=== PATIENT | male | born 1995 | race Caucasian/White ===

== ENCOUNTER 2017-04-30 14:04 | Observation (INO) | payer SELFPAY ==
[2017-04-30 14:53] LABS: #Eosinphils 0.1 thou/uL (0.0-0.7); #Lymphocytes 1.5 thou/uL (1.20-3.40); #Monocytes 0.3 thou/uL (0.11-0.59); #Neutrophils 2.6 thou/uL (1.40-6.50); %Lymphocytes 33.2 % (28.0-48.0); %Monocytes 5.8 % (0.0-4.0); Hematocrit 41.3 % (42.0-52.0); Mean Platelet Volume 8.6 fL (7.4-10.4); Red Blood Cell (RBC) Count 4.43 mill/uL (4.00-5.20); White Blood Cell (WBC) Count 4.6 thou/uL (4.8-10.8)
--- NOTE | 2017-04-30 15:09 | RAD ---
PORTABLE CHEST 1 VIEW: Date: 04/30/17 Time: 1436 hours HISTORY: Syncope, abnormal EKG. FINDINGS: The heart size is normal. The lungs are well expanded without focal areas of consolidation, pneumoth orax, or pleural effusions. IMPRESSION: No acute process. POS: [facility]
--- NOTE | 2017-04-30 15:09 | CT ---
CT BRAIN WITHOUT CONTRAST: Date: 04/30/17 HISTORY: Syncope. FINDINGS: No evidence of acute infarct, hemorrhage, midline shift, or abnormal extra-axial fluid collections a re seen. The ventricular size is normal and the basilar cisterns are patent. The visualized paranasa l sinuses and mastoid air cells are well aerated. IMPRESSION: No CT evidence of acute intracranial process. POS: [facility]
[2017-04-30 15:13] LABS: ALT (SGPT) 7 U/L (8-55); AST (SGOT) 12 U/L (5-34); Alkaline Phosphatase 54 U/L (Less than 750); Anion Gap 14 mmol/L (10-20); BUN (Urea Nitrogen) 11 mg/dL (8.9-20.6); Bilirubin, Total 0.6 mg/dL (0.2-1.2); Calc. Creatinine Clearance 0 mL/min (70-130); Calcium 9.7 mg/dL (7.8-10.44); Carbon Dioxide 26 mmol/L (22-29); Chloride 103 mmol/L (98-107); Estimated GFR-MDRD 82; Globulin 2.9 g/dL (2.4-3.5); Protein, Total 7.4 g/dL (6.0-8.3)
[2017-04-30] MEDS ORDERED: Adacel (T-DAP) 0.5 ML VIAL ONE (15:21)
[2017-04-30 17:35] LABS: Bilirubin Negative (Negative); Blood, Urine Negative (Negative); Glucose, Urine (Dipstick) Negative (Negative); Ketone, Urine Negative (Negative); Nitrite Negative (Negative); Protein, Urine (Dipstick) Negative (Neg-Trace)
[2017-04-30 17:43] LABS: Amphetamine Not Detected (NotDetected); Methadone Not Detected (NotDetected); Methamphetamine Not Detected (NotDetected)
[2017-04-30] MEDS ORDERED: Ondansetron ODT 4 MG TAB PO PRN (19:41)
[2017-04-30] MEDS ORDERED: Ondansetron HCl/PF 4 MG/2 ML Vial IVP PRN (19:41)
[2017-04-30] MEDS ORDERED: Acetaminophen 500 MG TAB PO PRN (19:41)
[2017-04-30 19:57] VITALS: BMI 20.4
[2017-04-30] MEDS: Famotidine 20 MG TAB PO SCH (21:10)
--- NOTE | 2017-04-30 22:23 | HP ---
DATE OF ADMISSION: 04/30/2017 PRIMARY CARE PHYSICIAN: Dr. Garvey in [place], [place] at [facility]. CHIEF COMPLAINT: Passing out. HISTORY OF PRESENT ILLNESS: This is a 21-year-old male who presents to [facility] after sustaining a syncopal episode on 04/30/2017. The patient states that he was a t [employer], attempting to drop his college courses due to progressiv e and debilitating migraine headaches. Patient states that he has been dealing with daily headaches that have been practically debilitating over the last several weeks, taking Seroquel and Zoloft as well as Klonopin for relief. Patient states he has had migraine headaches, progressively worsening over the last 2 years and has been diagnosed with a post-concussive and migraines after sustaining 3 to 4 concussions, dating back to his high school years. Patient states he has undergone extensive evaluation with multiple evaluations by two different neurologists and has been on multiple medicati ons including homeopathic remedies, acupuncture, and his current medication regimen to include Seroq uel, Klonopin, and Zoloft. Patient states he has daily headaches, which he usually can rest or lie still in a dark room resolving the symptoms. Patient states he has had intermittent episodes of zack ng dizzy and catching himself on a doorway or chair without fully passing out. The patient states h e had increasing head pain, usually temporal in region, radiating to his eye that crescendoed causin g him to become dizzy, nauseous, and falling to the floor, passing out. Patient states that he was out approximately 30 seconds and attended to by multiple people who witnessed it. No seizure activi ty noted. No bowel or bladder incontinence noted. The patient denies any known prior similar histo ry of syncope. Patient denies any prominent visual disturbance, epistaxis, recent dental procedures , fever, exposure history, or recent travel. Patient does admit that he has recently been weaned of f of Topamax over the last week after taking 200 mg at bedtime. In the emergency room, patient unde rwent extensive evaluation including neuro imaging with CAT scan, showing no acute intracranial proc ess. Portable chest x-ray also was unrevealing and screening laboratory data was unremarkable. Pro lactin level was drawn and noted 10.14, which is within normal limits. Patient received intravenous normal saline x1 liter and EKG evaluation showed questionable left anterior fascicular block, age i ndeterminate. PAST MEDICAL HISTORY: 1. Daily migraine headaches with nausea. 2. Post-concussive migraine headaches. PAST SURGICAL HISTORY: Status post right wrist and bilateral foot surgery. CURRENT MEDICATIONS: 1. Zoloft. 2. Klonopin. 3. Seroquel. 4. Vitamin B12. ALLERGIES: No known drug allergies. FAMILY HISTORY: No inheritable diseases per patient report. SOCIAL HISTORY: Patient is originally from the [place], [place] area. Accompanied by his parents in the emergency room. Admits the use of marijuana. No tobacco or alcohol use. REVIEW OF SYSTEMS: The following complete review of systems was negative, unless otherwise mentione d in the HPI or below: Constitutional: Weight loss or gain, ability to conduct usual activities. Skin: Rash, itching. Eyes: Double vision, pain. ENT/Mouth: Nose bleeding, neck stiffness, pain, tenderness. Cardiovascular: Palpitations, dyspnea on exertion, orthopnea. Respiratory: Shortness of breath, wheezing, cough, hemoptysis, fever or night sweats. Gastrointestinal: Poor appetite, abdominal pain, heartburn, nausea, vomiting, constipation, or diar keyana. Genitourinary: Urgency, frequency, dysuria, nocturia. Musculoskeletal: Pain, swelling. Neurologic/Psychiatric: Anxiety, depression. Allergy/Immunologic: Skin rash, bleeding tendency. PHYSICAL EXAMINATION: VITAL SIGNS: On admission, blood pressure 115/63, pulse 84, respiratory rate 18, temperature 98 deg augustine Fahrenheit, O2 saturation 99% on room air. GENERAL APPEARANCE: This is a 21-year-old male, alert and oriented x3, pleasant, conversa nt, in no acute distress. HEENT EXAM: Pupils are equal, round, and reactive to light and accommodation. Extraocular muscles are intact. No scleral icterus. No conjunctival injection. Left eyebrow with edema, ecchymosis, a nd a small laceration above the left eye. Nares patent. OP is clear. Teeth in good repair. NECK: Supple, no cervical adenopathy, no thyromegaly, no carotid bruits, no JVD appreciated. Cervi agnieszka spine with full active and passive range of motion. CHEST: Lungs are clear to auscultation bilaterally. CARDIOVASCULAR EXAM: S1 and S2, without noted murmur. ABDOMEN: Rounded, soft, nontender, and nondistended. Bowel sounds are positive in all four quadran ts. There is no hepatosplenomegaly, no abdominal bruits, no rebound or guarding appreciated. EXTREMITIES: Warm and dry with fair turgor. No clubbing, cyanosis, or asymmetric edema appreciated . Pulses are palpable distally at the dorsalis pedis, posterior tibial, and popliteal arteries bila terally. Capillary refill is less than 2 seconds. NEUROLOGIC EXAM: Cranial nerves II through XII are grossly intact. No focal or lateralizing signs appreciated. PERTINENT LABORATORY DATA AND X-RAY FINDINGS: Complete metabolic profile within normal limits. Pro lactin 10.14. CBC within normal limits. Urinalysis is negative. Urine drug screen, positive for c annabinoids. CT of the brain without contrast dated on 04/30/2017, showed no acute intracranial pro cess. Portable chest x-ray dated on 04/30/2017, showed no acute cardiopulmonary process. EKG by my interpretation dated on 04/30/2017, showed sinus mechanism with heart rates in the 60s. Normal R-w ave progression noted in the precordial leads. Leftward axis deviation. Left anterior fascicular b lock noted. No acute ST-T wave changes appreciated. ASSESSMENT AND PLAN: 1. Syncopal episode. Patient will be placed in observation status. We will continue symptomatic a nd supportive management. We will check 2D transthoracic echocardiogram in the a.m. Continue telem etry monitoring to rule out cardiogenic source. Suspect the presentation secondarily to complex amanuel yani given patient's extensive history. Consider Neurology consultation in the a.m. Continue home medication regimen and monitor clinical response. We will check TSH and magnesium level. 2. Left periorbital laceration. Continue symptomatic and supportive management. Local wound care. 3. History of post-concussive migraine. Resume home medication regimen and monitor clinical respon se. 4. Prophylaxis. Sequential compression devices while in bed. Pepcid 20 mg p.o. b.i.d. 5. Code status is FULL. Surrogate medical decision maker is the patient's mother.
[2017-05-01] MEDS: Famotidine 20 MG TAB PO SCH (08:49)
[2017-05-01 11:30] VITALS: BP 117/67; TEMP 98.7
--- NOTE | 2017-05-01 12:52 | DIS ---
DISCHARGE DIAGNOSES: 1. Status post syncopal episode, likely multifactorial including dehydration, improved. 2. Migraine headaches. 3. History of postconcussive syndrome. 4. Cannabis use. 5. Left periorbital laceration status post syncope. CONSULTATIONS: None. PERTINENT LABORATORY AND X-RAY FINDINGS: Complete metabolic profile within normal limits. TSH 1.11 . Prolactin level 10.14, magnesium 2.0. CBC within normal limits. Urinalysis negative. Urine paige g screen positive for cannabinoids 04/30/2017. A 2D transthoracic echocardiogram dated 05/01/2017 s howed ejection fraction of 60-65%. Normal study. CT of the brain without contrast dated 04/30/2017 showed no acute intracranial process. Portable chest x-ray dated 04/30/2017 showed no acute proces s. HOSPITAL COURSE: The patient was observed on the telemetry unit after initially presenting status p ost syncopal episode with left periorbital laceration, undergoing evaluation including metabolic and neuro imaging. All studies to date have been negative as stated previously. The patient's present ation likely multifactorial including dehydration and poor p.o. intake, increased stressors as well as chronic migraine headaches. Overall, the patient remained clinically stable through the hospital course with telemetry monitoring showing no sinus mechanism. The initial 12-lead EKG performed in the emergency room showed left anterior fascicular block, likely chronic in nature. No acute arrhyt hmia or dysrhythmia noted during telemetry monitoring. The patient overall stable and ready for dis charge 05/01/2017. DISCHARGE MEDICATIONS: 1. Vitamin D3 10,000 units p.o. daily. 2. Vitamin B12. 3. Seroquel 50 mg p.o. at bedtime. 4. Zoloft 200 mg p.o. daily. 5. Klonopin 0.5 mg p.o. b.i.d. FOLLOWUP: The patient may follow up with his primary care provider in [place] hometown [place] within 7 days of discharge. CONDITION ON DISCHARGE: Stable. ACTIVITY: Ad juan carlos. DIET: Regular. CODE STATUS: Full. DISPOSITION: Home 05/01/2017.
== END 2017-05-01 13:47 | disposition home or self-care (01) ==
LOC: ERS 14:04 → 2SW 17:49
PROVIDERS: ADMIT Family Medicine; ATTEND Family Medicine
DX: R55 Syncope and collapse (principal); G43.909 Migraine, unspecified, not intractable, without status migrainosus; F12.90 Cannabis use, unspecified, uncomplicated; S01.112A Laceration without foreign body of left eyelid and periocular area, initial encounter; Z79.899 Other long term (current) drug therapy; Z87.820 Personal history of traumatic brain injury
CPT/HCPCS: 12001; 36415; 70450; 71010; 80053; 80306; 81003; 83735; 84146; 84443; 85025; 90715; 93005; 93306; 96360; G0378